=== PATIENT | female | born 1970 | race Caucasian/White ===

== ENCOUNTER 2025-04-27 08:55 | Outpatient (REF) | payer MEDICARE, MEDICAID, SELFPAY ==
--- OUTSIDE RECORDS SUMMARY | 2025-04-27 09:50 | XMS_ITS | Clinical Summary ---
Author Organization [address] Address [address] [place] [address] Phone Care Team Providers Care Voltage Regulator Assembler Name Role Phone [facility] Primary Care Provider [phone] Allergies Active Allergy Reactions Criticality Noted Date Comments Amoxicillin-Pot Clavulanate Diarrhea,Itching,Jakob sea And Vomiting,Rash Medium 04/23/2008 Moxifloxacin 04/29/2005 throat closes, cannot breathe Medications OXcarbazepine (TRILEPTAL) 300 mg tablet TAKE 1 TABLET BY MOUTH EVERY NIGHT DIRECTED 06/11/20 23 Active buPROPion XL (WELLBUTRIN XL) 300 mg 24 hr tablet Take 1 tablet (300 mg total) by mouth. 01/18/20 21 Active vortioxetine (Trintellix) 20 mg tablet Take 1 tablet (20 mg total) by mouth. 01/05/20 20 Active ARIPiprazole (ABILIFY) 5 mg tablet Take 2 tablets (10 mg total) by mouth 1 (one) time each day. Active buprenorphine-n aloxone (SUBOXONE) 8-2 mg per SL film Place under the tongue. Active clonazePAM (KlonoPIN) 0.5 mg tablet Take 1 tablet (0.5 mg total) by mouth. Active omeprazole (PriLOSEC) [address] capsuleIndicati ons:Gastroesoph ageal reflux disease, unspecified whether esophagitis present TAKE 1 CAPSULE BY MOUTH EVERY MORNING ON AN EMPTY STOMACH, WAIT 30 MINUTES AND THEN EAT TO ACTIVATE MEDICATION 90 capsule 3 06/08/20 24 Active phentermine 30 mg capsule Take 1 capsule (30 mg total) by mouth 1 (one) time each day before breakfast. Max Daily Amount: 30 mg 30 each 04/25/20 25 025 Active tirzepatide (MOUNJARO) 2.5 mg/0.5 mL injectionIndica tions:Need for prophylactic vaccination and inoculation against influenza,Forme r smoker,Obesity, unspecified class, unspecified obesity type, unspecified whether serious comorbidity present,Depress ion, unspecified depression type Inject 0.5 mL (2.5 mg total) under the skin every 7 (seven) days. 6 mL 3 07/24/19 25 025 Discontinued(P atient Discharge) phentermine 30 mg capsule Take 1 capsule (30 mg total) by mouth 1 (one) time each day before breakfast. Max Daily Amount: 30 mg 30 each 2 08/10/19 25 025 Discontinued phentermine 15 mg capsule Take 1 capsule (15 mg total) by mouth 1 (one) time each day before breakfast. 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 Pes planovalgus 04/17/2025 Arthritis of left subtalar joint 11/30/2024 Former smoker 07/24/2024 Family history of colon cancer in father Overview (07/05/2024): Age 50 Derangement of medial meniscus of right knee 09/2023 Acute lateral meniscus tear of right knee 2023 Upper respiratory tract infection 06/04/2023 SOB (shortness of breath) 06/04/2023 Arthralgia of left wrist 06/12/2020 De Quervain's tenosynovitis, left 02/26/2020 Closed fracture of proximal phalanx of left ace le finger 03/22/2019 Overview (04/17/2025): Problem Code: S62.617A; Problem Code Type: ICD-10; Status: 'A'; Gastric ulcer 10/24/2012 Overview (08/20/2023): EGD and bx 10/24/2012: gastric antral ulcer biopsy: active ulcer, benign.-no h. pylori bacteria identified. Normal EGD 09/20/2013. Hiatal hernia 10/19/2012 Overview (08/20/2023): 5 cm HH at EGD 10/24/2012. Depression 01/24/2008 Myalgia 03/01/2006 Overview (08/20/2023): IMO update Irritable bowel syndrome 02/25/2006 Anxiety state 02/19/2006 Overview (08/20/2023): On chronic Paxil, no more panic attacks Lumbosacral spondylosis without myelopathy 02/19 Abdominal pain, epigastric 12/28/2005 Overview (08/20/2023): Episode of epigastric abdominal pain 2005. Possible IBS. Possible infectious diarrheal illness. Upper GI endoscopy and gastric biopsies within normal limits 4.27.06. EGD normal 09/20/2013. Resolved Problems Problem Noted Date Diagnosed Date Resolved Date Runny nose 06/04/2023 04/17/2025 Tobacco use disorder 04/01/2006 025 Encounters Date Type Department Care Team Description 04/23/2025 Telephone Pulmonology - [address] [phone] Nelida Harman MA 04/17/2025 1:30 PM EST Consult Pulmonology [address] [phone] Arcelia Kirk MD DOE (dyspnea on exertion) (Primary Dx); Chronic fatigue and malaise; Obesity (BMI 30-39.9); Chronic midline low back pain without sciatica 04/06/2025 Telephone Bariatric Surgery - [address] [phone] Rimma Kelly PA 04/06/2025 Results Follow-Up Bariatric Surgery - [address] [phone] Rimma Kelly PA 04/04/2025 2:30 PM EDT Office Visit Bariatric Surgery - [address] [phone] Rimma Kelly PA Class 1 obesity due to excess calories with body mass index (BMI) of 33.0 to 33.9 in adult, unspecified whether serious comorbidity present (Primary Dx); MARIUM (obstructive sleep apnea); Family history of diabetes mellitus; Prediabetes 03/29/2025 1:15 PM EDT - 03/29/2025 11:59 PM EDT Hospital Encounter [facility] [place] [address] [place] [address] Radiculopathy, thoracic region; Vertebrogenic low back pain Discharge Disposition: Home or Self Care from Last 3 Months Immunizations Immunization Administration Dates Next Due Influenza Quadravalent, MDCK , 0.5ml, preservative free (Flucelvax) 6mo and older 07/16/2023 Influenza trivalent, MDCK, 0 .5mL, preservative free (Flucelvax) 6mo and older 07/24/2024 Influenza trivalent, with pr eservative (Fluzone; Afluria) 6mo and older 04/05/2020 Td Tetanus diptheria (Tdvax) 7yo and older 07/16,12/16/2004 Surgical History Surgery Date Site/Laterality Comments ESOPHAGOGASTRODUODENOSCOPY 10/08/2005 PROCEDURE: MI ESOPHAGOGASTRODUODENOSCOPY TRANSORAL DIAGNOSTIC CARPAL TUNNEL RELEASE PROCEDURE: HISTORICAL CARPAL TUNNEL REL; COMMENT: bilateral COLONOSCOPY 06/14/2002 PROCEDURE: [place] COLONOSCOPY FLX DX W/COLLJ SPEC WHEN PFRMD; COMMENT: Negative, Dr. Maico Odell COLONOSCOPY 03/07/2008 PROCEDURE: MI COLONOSCOPY FLX DX W/COLLJ SPEC WHEN PFRMD; COMMENT: Negative OTHER SURGICAL HISTORY 06/14/2006 PROCEDURE: MI TOTAL ABDOMINAL HYSTERECT W/WO RMVL TUBE OVARY; COMMENT: 2006 ovaries are still in ESOPHAGOGASTRODUODENOSCOPY 06/14/2012 PROCEDURE: MI EGD TRANSORAL BIOPSY SINGLE/MULTIPLE; COMMENT: gastric ulcers: Benign, no H. pylori. COLONOSCOPY 06/14/2012 PROCEDURE: MI COLONOSCOPY FLX DX W/COLLJ SPEC WHEN PFRMD; COMMENT: normal ESOPHAGOGASTRODUODENOSCOPY 09/20/2013 PROCEDURE: MI ESOPHAGOGASTRODUODENOSCOPY TRANSORAL DIAGNOSTIC; COMMENT: normal COLONOSCOPY 03/03/2021 PROCEDURE: HISTORICAL COLONOSCOPY; COMMENT: dr. carolyn rowley, repeat 5 years OTHER SURGICAL HISTORY Right PROCEDURE: MI ARTHRS KNE SURG W/MENISCECTOMY MED/LAT W/SHVG; COMMENT: r meniscus HYSTERECTOMY Medical History Medical History Date Comments Closed fracture of neck of m etacarpal bone(s) 06/14/2004 DX:Closed fracture of neck o f metacarpal bone(s) Lumbosacral spondylosis with out myelopathy DX:Lumbosacral spondylosis w ithout myelopathy Anxiety state, unspecified 02/19/2006 DX:An xiety state, unspecified; COMMENT: On chronic Paxil, no more panic attacks Abdominal pain, epigastric 12/28/2005 DX:Ab dominal pain, epigastric; COMMENT: Episode of epigastric abdominal pain 2005. Possible IBS. Possible infectious diarrheal illness. Upper GI endoscopy and gastric biopsies within normal limits 4.27.06. Irritable bowel syndrome 02/25/2006 DX:Irri table bowel syndrome Family history of malignant neoplasm of gastrointestinal tract 10/27/2005 DX:Family history of maligna nt neoplasm of gastrointestinal tract; COMMENT: negative screening colonoscopy [address] Maico Odell. Next colonoscopy indicated 2007. Single first-degree relative with diagnosis of colon cancer at age 50. Tobacco use disorder 04/01/2006 DX:Tobacco use disorder Gastric ulcer 10/24/2012 DX:Gastric ulcer ; COMMENT: EGD and bx 10/24/2012: Esophageal reflux DX:Esophageal reflux Functional dyspepsia DX:Function al dyspepsia H/O gastric ulcer DX:H/O gastric ulcer Family History Medical History Relation Name Comments Colon cancer Father Arthritis Mother Thyroid disease Mother Autoimmune disease Neg Hx Breast cancer Neg Hx Colon cancer Neg Hx Coronary artery disease Neg Hx Diabetes Neg Hx Heart attack Neg Hx Heart failure Neg Hx Hyperlipidemia Neg Hx Hypertension Neg Hx Mental illness Neg Hx Prostate cancer Neg Hx Sleep apnea Neg Hx Relation Name Status Comments Brother 1 Alive Brother 2 Alive Brother 3 Alive Father Alive HEART COLON CA NCER Mother Alive RHEUMATOID ARTH RITIS Sister Alive BACK PROBLEMS O BESITY Social History Tobacco Use Types Packs/Day Years Used Date Smoking Tobacco: Former Cigarettes 0.3 Q uit: 01/21/2022 Smokeless Tobacco: Current Tobacco Cessation:Ready to Q uit: Not Asked; Counseling Given: Not Answered Alcohol Use Standard Drinks/Week Comments No 0 (1 standard drink = 0.6 oz pur e alcohol) Housing Instability Answer Date Recorde d Are you worried that in the next 2 months you may not have stable housing? No 11/21/2024 Food Access & Nutrition Answer Date Rec orded Do you have access to a vari ety of food including fruits and vegetables? Yes 11/21/2024 Health Literacy Answer Date Recorded How often do you need to hav e someone help you when you read instructions, pamphlets, or other written material from your doctor or pharmacy? Never 11/21/2024 Caregiver: How often do you need to have someone help you when you read instructions, pamphlets, or other written material from your doctor or pharmacy? Not on file 11/21/2024 Financial Risk Answer Date Recorded How hard is it for you to pa y for the very basics like food, housing, medical care, and air conditioning / heating? Not very hard 11/21/2024 Transportation Answer Date Recorded Has the lack of transportati on kept you from meetings, work, or from getting things needed for daily living? No Has the lack of transportati on kept you from medical appointments or from getting medications? No 11/21/2024 Social Isolation Answer Date Recorded How often do you feel lonely or isolated from th ose around you? Never 11/21/2024 Food Risk Answer Date Recorded Within the past 12 months we worried whether our food would run out before we got money to buy more. Patient declined 025 Within the past 12 months th e food we bought just didn't last and we didn't have money to get more. Patient declined 11/12 Dependent Care Answer Date Recorded Do you need help finding or paying for care for your loved ones. For example, early childhood teacher assistant or elderly care for an older adult? No 11/21/2024 Education Answer Date Recorded Do you think completing more education or training, like finishing a GED, going to college, or learning a trade, would be helpful for you? No 11/21/2024 Employment and Income Answer Date Recor ded During the last four weeks, have you been actively looking for work? No 11/21/2024 Living Situation Answer Date Recorded What is your living situation? Unrecognized valu e 11/21/2024 Comments No Sex and Gender Information Value Date Recorded Sex Assigned at Not on file Legal Sex Female 5:40 AM EST Gender Identity Female 07/04/2024 2:59 PM EST Sexual Orientation Not on file Obstetrics History Para Term AB IAB SAB Ectopic Multiple Livin g Live Births 2 2 2 2 Date Outcome GA Total Labor Labor/2nd/3rd Weight Sex Type Anes PTL Patricia A1 A5 Name Clin Term Term Last Filed Vital Signs Vital Sign Reading Time Taken Comments Blood Pressure 123/66 04/17/2025 1:20 PM EST Pulse 87 04/17/2025 1:20 PM EST Temperature 36.1 C (97 F) 04/17/2025 1:20 PM EST Respiratory Rate 20 04/17/2025 1:20 PM EST Oxygen Saturation 95% 04/17/2025 1:20 PM EST Inhaled Oxygen Concentration - - Weight 82.1 kg (181 lb) 04/17/2025 1:20 PM EST Height 157.5 cm (5' 2 ) 04/17/2025 1:20 PM EST Body Mass Index 33.11 04/17/2025 1:20 PM EST Plan of Treatment Upcoming Encounters Date Type Department Care Team (Late st Contact Info) Description 05/15/2025 7:30 AM EST Appointment [facility] CT Scan [address] [place] [phone] 06/05/2025 8:30 AM EST Ancillary Procedure Pulmonology - [place] [address] [phone] 06/05/2025 9:15 AM EST Office Visit Pulmonology [facility] [address] [phone] Arcelia Kirk MD [address] [place] [phone] 09/11/2025 8:00 AM EDT Office Visit Bariatric Surgery - [place] [address] [facility] [address] [place] [address] Rimma Kelly PA [address] [place] [address] Health Maintenance Due Date Last Done Comments Hepatitis B Vaccines (1 of 3 - 19+ 3-dose series) 12/02/1987 Cervical Cancer Screening: Pap Smear 11/29/2017 11/29/2014 Pneumococcal Vaccine: 50+ Years (1 of 1 - PCV) 2018 Zoster Vaccines (1 of 2) 2018 HIV Screening 05/23/2022 Medicare Annual Wellness Visit 05/23/2022 COVID-19 Vaccine ( - season) 2025 11/27/2020, 11/06/2020 Influenza Vaccine (#1) 2025 , 07/16/2023, 04/05/2020, Additional history exists Social Influencers of Health Screening 11/21/2025 11/21/2024 Colorectal Cancer Screening: Colonoscopy 03/03/2026 03/03/2021 Breast Cancer Screening 10/19/2026 10/20/19, 08/26/2023, 08/20/2022 Cholesterol Screening (Lipid Panel) 07/24/2029 07/24/2024 DTaP,Tdap,and Td Vaccines (4 - Td or Tdap) 07/16/2033 07/16/2023, 09/22/2012, 12/16/2004 RSV Immunization Adult Patients (1 - 1-dose 75+ series) 12/02/2043 Hepatitis C Screening Completed 07/24/2024 Depression Screening Completed 11/21/2024 HIB Vaccines Aged Out No longer eligi ble based on patient's age to complete this topic HPV Vaccines Aged Out No longer eligi ble based on patient's age to complete this topic Hepatitis A Vaccines Aged Out No long er eligible based on patient's age to complete this topic IPV Vaccines Aged Out No longer eligi ble based on patient's age to complete this topic MMR Vaccines Aged Out No longer eligi ble based on patient's age to complete this topic Meningococcal ACWY Vaccine Aged Out N o longer eligible based on patient's age to complete this topic Meningococcal B Vaccine Aged Out No l onger eligible based on patient's age to complete this topic RSV Immunization Patients Under 20 months Aged Out No longer eligible based on patient's age to complete this topic Varicella Vaccines Aged Out No longer eligible based on patient's age to complete this topic Procedures Procedure Name Priority Date/Time Associated Diagnosis Comments HEMOGLOBIN A1C Routine 04/06/2025 7:38 AM EDT Class 1 obesity due to excess calories with body mass index (BMI) of 33.0 to 33.9 in adult, unspecified whether serious comorbidity present Family history of diabetes mellitus Prediabetes XR THORACIC SPINE 2 VIEWS Routine 03/29/2025 1:38 PM EDT Radiculopathy, thoracic region Vertebrogenic low back pain MG MAMMO DIGITAL SCREENING W JADEN BILAT Routine 10/19/2024 6:13 PM EDT Encounter for screening mammogram for breast cancer HEPATITIS C ANTIBODY Routine 07/24/2024 9:31 AM EST Need for prophylactic vaccination and inoculation against influenza Former smoker Obesity, unspecified class, unspecified obesity type, unspecified whether serious comorbidity present Depression, unspecified depression type LIPID PANEL WITH REFLEX TO DIRECT LDL Routine 07/24/2024 9:31 AM EST Need for prophylactic vaccination and inoculation against influenza Former smoker Obesity, unspecified class, unspecified obesity type, unspecified whether serious comorbidity present Depression, unspecified depression type from Last 3 Months or Most Recently Relevant to Health Maintenance Results * Hemoglobin A1c (04/06/2025 7:38 AM EDT) Hemoglobin A1C 6.1 <6.5 % LAB CHEMISTRY METHOD 04/06/2025 11:29 AM EDT [facility] Mean Bld Glu Estim. 128 mg/dL LAB CHEMISTRY METHOD 04/06/2025 11:29 AM EDT [facility] Blood Venous blood specimen / Unknown Venipuncture / Unknown 04/06/2025 7:38 AM EDT 04/06/2025 7:38 AM EDT us Rimma ALEXANDRA LAB BLOOD ORDERABLES Final R esult [facility] [address] [place] [address], [place] [phone] * XR Thoracic Spine 2 Views (03/29/2025 1:38 PM EDT) Anatomical Region Laterality Modality Spine, T-spine Radiographic Sis ging 03/29/2025 5:36 PM EDT Impressions 03/29/2025 5:38 PM EDT No acute fracture or dislocation is seen. -------- FINAL REPORT -------- Dictated By: April Stone Dictated Date: 03/29/2025 17:36 ET Assigned Physician: April Stone Reviewed and Electronically Signed By: April Stone Signed Date: 03/29/2025 17:38 ET Workstation ID: [id number] Transcribed By: Self Edit Transcribed Date: 03/29/2025 17:36 ET Narrative 03/29/2025 5:38 PM EDT HISTORY: pain TECHNIQUE: 2 views of the thoracic spine COMPARISON: Thoracic spine radiograph from 01/02/2013 FINDINGS: Vertebral body height is maintained. Decreased disc height at multiple levels with endplate sclerosis. Small anterior osteophytes are present at multiple levels. The upper thoracic spine is not well-visualized on the lateral view. Spinal alignment is maintained without evidence of spondylolisthesis. No acute fracture is identified. Procedure Note April Stone MD - 03/29/2025 HISTORY: pain TECHNIQUE: 2 views of the thoracic spine COMPARISON: Thoracic spine radiograph from 01/02/2013 FINDINGS: Vertebral body height is maintained. Decreased disc height at multiplelevels with endplate sclerosis. Small anterior osteophytes are present atmultiple levels. The upper thoracic spine is not well-visualized on thelateral view. Spinal alignment is maintained without evidence ofspondylolisthesis. No acute fracture is identified. IMPRESSION: No acute fracture or dislocation is seen. -------- FINAL REPORT -------- Dictated By: April Stone Dictated Date: 03/29/2025 17:36 ET Assigned Physician: Arpil Stone Reviewed and Electronically Signed By: April Stone Signed Date: 03/29/2025 17:38 ET Workstation ID: [id number] Transcribed By: Self Edit Transcribed Date: 03/29/2025 17:36 ET Romie ALEXANDRA IMG XR PROCEDURES Final Result * MG Mammo Digital Screening w Jaden bilat (10/19/2024 6:13 PM EDT) Anatomical Region Laterality Modality Breast Bilateral Mammography 10/20/2024 2:45 PM EDT Impressions 10/20/2024 2:49 PM EDT No mammographic evidence for malignancy. BI-RADS CATEGORY: 1 - NEGATIVE RECOMMENDATION: Screening bilateral mammogram is recommended in 1 year. Mammo Location: [facility], [address] [place] [address], [address], . -------- FINAL REPORT -------- Dictated By: Shonda Booth Dictated Date: 10/20/2024 14:45 ET Assigned Physician: Shonda Booth Reviewed and Electronically Signed By: Shonda Booth Signed Date: 10/20/2024 14:49 ET Workstation ID: [id number] Transcribed By: Self Edit Transcribed Date: 10/20/2024 14:45 ET Narrative 10/20/2024 2:49 PM EDT Bilateral screening mammogram. CLINICAL: 53 years old, Female, routine annual exam. COMPARISON: Prior studies, latest from 08/26/2023. TECHNIQUE: Bilateral MLO and CC views were obtained digitally with 2-D C views and 3-D mammogram (digital breast tomosynthesis). Computer-aided detection was utilized in evaluation of this exam (CAD). FINDINGS: There is no evidence of suspicious mass or architectural distortion. No worrisome calcifications are evident. There has been no significant change from prior exam(s). BREAST DENSITY: C - The breasts are heterogeneously dense which may obscure small masses. Procedure Note Shonda Booth MD - 10/20/2024 Bilateral screening mammogram. CLINICAL: 53 years old, Female, routine annual exam. COMPARISON: Prior studies, latest from 08/26/2023. TECHNIQUE: Bilateral MLO and CC views were obtained digitally with 2-D Cviews and 3-D mammogram (digital breast tomosynthesis). Computer-aideddetection was utilized in evaluation of this exam (CAD). FINDINGS: There is no evidence of suspicious mass or architectural distortion. Noworrisome calcifications are evident. There has been no significantchange from prior exam(s). BREAST DENSITY: C - The breasts are heterogeneously dense which mayobscure small masses. IMPRESSION: No mammographic evidence for malignancy. BI-RADS CATEGORY: 1 - NEGATIVE RECOMMENDATION: Screening bilateral mammogram is recommended in 1 year. Mammo Location: [facility], [address] [place] [address], [facility], . -------- FINAL REPORT -------- Dictated By: Shonda Booth Dictated Date: 10/20/2024 14:45 ET Assigned Physician: Shonda Booth Reviewed and Electronically Signed By: Shonda Booth Signed Date: 10/20/2024 14:49 ET Workstation ID: [id number] Transcribed By: Self Edit Transcribed Date: 10/20/2024 14:45 ET Emeterio ALEXANDRA IMG BI PROCEDURES Final R esult * Hepatitis C antibody (07/24/2024 9:31 AM EST) Hepatitis C Antibody Negative Negative LAB CHEMISTRY METHOD 07/24/2024 3:49 PM EST [facility] Blood Venous blood specimen / Unknown Venipuncture / Unknown 07/24/2024 9:31 AM EST 07/24/2024 9:31 AM EST Emeterio ALEXANDRA LAB BLOOD ORDERABLES Brandi l Result [facility] [address] [place] [address], [place] [phone] * Lipid panel with reflex to direct LDL (07/24/2024 9:31 AM EST) Cholesterol 183 0 - 200 mg/dL LAB CHEMISTRY METHOD 07/24/2024 3:06 PM [facility] Triglycerides 101 0 - 150 mg/dL LAB CHEMISTRY METHOD 07/24/2024 3:06 PM [facility] HDL 79 >=40 mg/dL LAB CHEMISTRY METHOD 07/24/2024 3:06 PM [facility] LDL Calculated 84 0 - 100 mg/dL LAB CHEMISTRY METHOD 07/24/2024 3:06 PM [facility] VLDL Cholesterol David 20.2 mg/dL LAB CHEMISTRY METHOD 07/24/2024 3:06 PM [facility] Non HDL Chol. (LDL+VLDL) 104 <145 mg/dL LAB CHEMISTRY METHOD 07/24/2024 3:06 PM [facility] Chol/HDL Ratio 2.3 0.0 - 4.4 LAB CHEMISTRY METHOD 07/24/2024 3:06 PM [facility] Blood Venous blood specimen / Unknown Venipuncture / Unknown 07/24/2024 9:31 AM EST 07/24/2024 9:31 AM EST Emeterio ALEXANDRA LAB BLOOD ORDERABLES Brandi l Result Performing Organization Address City/[facility]/ZIP Co de Phone Number [facility] [address] [place] [address], [place] [phone] from Last 3 Months or Most Recently Relevant to Health Maintenance Insurance MEDICARE MEDICAID - [place] Care Teams Voltage Regulator Assembler Relationship Specialty Start Date End Date Emeterio House PA [address] [place] [id number] PCP - General Internal Medicine 08/14/20
--- OUTSIDE RECORDS SUMMARY | 2025-04-27 09:50 | XMS_ITS | Encounter Summary ---
Author Organization [facility] Address [address] [place] [address] Care Team Providers Care Inside Wirer Name Role Phone Emeterio House Primary Care Provider [phone] Encounter Details Date Type Department Care Team ([facility] Contact Info) Description 04/06/2025 Results Follow-Up Bariatric Surgery - [address] [place] [address] Rimma Kelly PA [address] [place] [phone] Social History Tobacco Use Types Packs/Day Years Used Date Smoking Tobacco: Former Cigarettes 0.3 Q uit: 01/21/2022 Smokeless Tobacco: Current Alcohol Use Standard Drinks/Week Comments No 0 [...] care for your loved ones. For example, child care provider or elderly care for an older adult? [...] PM EST Sexual Orientation Not on file documented as of this encounter Plan of Treatment Upcoming Encounters Date Type Department Care Team (Late st Contact Info) Description 05/15/2025 7:30 AM EST Appointment [facility] CT Scan [address] [place] [phone] 06/05/2025 8:30 AM EST Ancillary Procedure Pulmonology - [place] [address] [phone] 06/05/2025 9:15 AM EST Office Visit Pulmonology [facility] [address] [phone] Arcelia Kirk MD [address] [place] [phone] 09/11/2025 8:00 AM EDT Office Visit Bariatric Surgery - [address] [place] [phone] Rimma Kelly PA [address] [place] [phone] documented as of this encounter Visit Diagnoses Not on filedocumented in this encounter Additional Health Concerns Assessment Noted Time PHQ-9 Depression Total Score: 0 07/23/19 25 10:02 AM EST documented as of this encounter Care Teams Inside Wirer Relationship Specialty Start Date End Date Emeterio House PA [address] [place] [id number] PCP - General Internal Medicine 08/14/20 documented as of this encounter
--- OUTSIDE RECORDS SUMMARY | 2025-04-27 09:50 | XMS_ITS | Encounter Summary ---
Author Organization [employer] Address [address] [facility] [address] [place] [address] Care Team Providers Care Assembly Repairer Name Role Phone Unavailable Primary Care Provider Unavailabl e Encounter Details Date Type Department Care Team (Latest Contact Info) Description 10/28/2018 Abstract [facility] CONVERSIONS Dental, Provider, DDS Social History Tobacco Use Types Packs/Day Years Used Date Smoking Tobacco: Never Assessed Comments Unknown Sex and Gender Information Value Date Recorded Sex Assigned at Female 04/13/2022 10:23 AM EDT Legal Sex Female 10:23 AM EDT Gender Identity Female 04/13/2022 10:23 AM EDT Sexual Orientation Straight 04/13/2022 10 :23 AM EDT documented as of this encounter Plan of Treatment Not on file documented as of this encounter Visit Diagnoses Not on filedocumented in this encounter
--- OUTSIDE RECORDS SUMMARY | 2025-04-27 09:50 | XMS_ITS | Encounter Summary ---
Author Organization [employer] Address [address] [facility] [address] [place] [address] Care Team Providers Care Document Design Specialist Name Role Phone Unavailable Primary Care Provider Unavailabl e Encounter Details Date Type Department Care Team (Latest Contact Info) Description 04/01/2020 Abstract [facility] CONVERSIONS Dental, Provider, DDS Social History [...]
--- OUTSIDE RECORDS SUMMARY | 2025-04-27 09:50 | XMS_ITS | Clinical Summary ---
Author Organization [employer] Address [address] [place] [address] [address] [place] [address] Care Team Providers Care Sales And Marketing Executive Name Role Phone Unavailable Primary Care Provider Unavailabl e Social History Tobacco Use Types Packs/Day Years Used Date Smoking Tobacco: Never Assessed Comments Unknown Sex and Gender Information Value Date Recorded Sex Assigned at Female 04/13/2022 10:23 AM EDT Legal Sex Female 10:23 AM EDT Gender Identity Female 04/13/2022 10:23 AM EDT Sexual Orientation Straight 04/13/2022 10 :23 AM EDT Last Filed Vital Signs Vital Sign Reading Time Taken Comments Blood Pressure 128/72 06/21/2020 12:01 AM EST Pulse - - Temperature - - Respiratory Rate - - Oxygen Saturation - - Inhaled Oxygen Concentration - - Weight - - Height - - Body Mass Index - - Plan of Treatment Health Maintenance Due Date Last Done Comments CT Colonography 1968 Colonoscopy 1968 Colorectal Cancer Screening 1968 Depression Screening 1968 FIT DNA/Cologuard 1968 FIT 1968 FOBT 1968 Sigmoidoscopy 1968 Disability Screening 1968 Alcohol/Substance Use Screening 1980 Tobacco Screening 1980 DTaP/Tdap/Td Vaccines (1 - Tdap) 12/02/1987 Hepatitis B Vaccines (1 of 3 - 19+ 3-dose series) 12/02/1987 Pap Smear 1989 Cervical Cancer Screening 1998 HPV/Cotest 1998 Mammogram 2008 Pneumococcal Vaccine: 50+ Ye ars (1 of 1 - PCV) 2018 Zoster Vaccines (1 of 2) 2018 COVID-19 Vaccine (2023-2 5 season) 2025 Influenza Vaccine (#1) 2025 RSV Patients and Pa tients Aged 60 years or older (1 - 1-dose 75+ series) 12/02/2043 HIB Vaccines Aged Out No longer eligi [...] patient's age to complete this topic Meningococcal Vaccine Aged Out No luisa tanya eligible based on patient's age to complete this topic RSV under 20 months Aged Out No longe r eligible based on patient's age to complete this topic Rotavirus Vaccines Aged Out No longer eligible based on patient's age to complete this topic
--- OUTSIDE RECORDS SUMMARY | 2025-04-27 09:50 | XMS_ITS | Encounter Summary ---
Author Organization [employer] Address [address] [place] [address] [address] [place] [address] Care Team Providers Care Control Tower Radio Operator Name Role Phone Unavailable Primary Care Provider Unavailabl e Encounter Details Date Type Department Care Team (Latest Contact Info) Description 02/18/2021 Abstract [facility] CONVERSIONS Dental, Provider, DDS Social History [...]
--- OUTSIDE RECORDS SUMMARY | 2025-04-27 09:50 | XMS_ITS | Data Portability ---
Author Organization REX Parminder Tubbs [facility], [facility] Address [address] [place] [address] Care Team Providers Care Retail Event Assistant Name Role Phone TRISTINLESUZANNE Primary Care Provider Assessment Encounter Date Assessment Date Assessment LastModified by Organization Details LastModified Time 08/15/2024 08/15/2024 ICD-10: Right pe s planovalgus, subfibular impingement CHIEF COMPLAINT: Right foot and ankle pain HISTORY OF PRESENT ILLNESS: Joie is a very pleasant 53-year-old woman who is well-known to me as she is status post successful left triple arthrodesis for pes planovalgus deformity in late September 2021. I last saw her in November 2021. She has no complaints with regard to her left foot or ankle and describes her left side is feeling great. She comes in today because of a one-month history of insidious onset right lateral ankle and hindfoot pain without injury or inciting event. She has tried icing the area and taking Tylenol. She has not tried bracing orthotics. She is here today to discuss additional treatment options. Past family, medical, social history and review of systems has been reviewed, updated and is located in the patient s chart. PHYSICAL EXAM: General: obese, healthy appearing, in no acute distress Psych: alert and oriented x3, normal mood Skin: intact without ulceration or lesion, normal turgor Lungs: respirations unlabored Cardiac: heart rate regular, normal peripheral pulses Musculoskeletal: On standing exam, her left foot and ankle are well aligned/plantigrade . She has asymmetric right pes planovalgus deformity. She is able to single limb heel rise with some difficulty. On seated exam, she is tender about the right lateral ankle and hindfoot especially over the sinus tarsi where there is some adipose tissue and synovitic change. She is nontender over the medial hindfoot and posterior tibial tendon. She has a gastrocnemius contracture. Skin is intact and she is distally neurovascularly intact. She is mildly tender over the peroneal tendons. X-RAYS: Five standing views of the right foot and ankle with comparison AP left foot and AP left ankle were ordered, obtained and reviewed by me today at [facility], demonstrating healed left triple hindfoot arthrodesis with well aligned foot and ankle. On the right side, there is pes planovalgus deformity with lateral talonavicular uncovering and sag in Meary's line on lateral view through the midfoot. Her ankle mortise is congruent. There is question of chronic subtle syndesmotic widening. IMPRESSION: Right pes planovalgus, subfibular impingement PLAN: I discussed these findings with Joie. I believe she is experiencing the same symptoms on the right side that she was experiencing on the left side prior to surgery. I believe her sub-fibular impingement is driven by her deformity. I have recommended trial of OTC orthotics in conjunction with a [facility] external ankle brace, which can be worn either in a locked or unlocked position depending on her preference. She will follow up with me in 3 months for reevaluation. If pain persists, I would recommend an MRI of the right ankle for further evaluation of her hindfoot joints, ankle, peroneal tendons and lateral ligaments. If conservative measures fail, she will likely require a right triple hindfoot arthrodesis. I discussed this with her today. All questions were answered. The patient is ambulatory, but has weakness and/or instability of their extremity which requires stabilization from this semi-rigid/rigid orthosis to improve their function. Verbal and written instructions for the use and application of this item were given. Patient was instructed that should the brace result in increased pain, decreased sensation, increased swelling or an overall worsening of their medical condition, to please contact our office immediately. 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 I treated her in a [facility] ankle brace and she is doing much better today with essentially no pain about her right foot and ankle. She is happy about this improvement. We recall that she is 3 years status post left triple hindfoot arthrodesis. She unfortunately developed pain about her left dorsal midfoot after running across the street two weeks ago. She feels she is walking with a limp. Prior to this, she was not having any left foot or ankle pain. Her pain level is 8/10. She denies any swelling or ecchymosis. She has been taking Tylenol for pain. Past family, medical, social history and review of systems has been reviewed, updated and is located in the patient s chart. PHYSICAL EXAM: General: obese, healthy appearing, in no acute distress Psych: alert and oriented x3, normal mood Skin: intact without ulceration or lesion, normal turgor Lungs: respirations unlabored Cardiac: heart rate regular, normal peripheral pulses Musculoskeletal: On standing exam, she has right pes planovalgus. Her left foot and ankle are well aligned. She has well-healed incisions. There is no visible swelling, erythema, ecchymosis or warmth. She is tender over her dorsal naviculocuneiform joints. She is also tender over her dorsal navicular over retained hardware. She is otherwise nontender and distally neurovascular intact. Her ankle is stable and nontender. X-RAYS: Five standing views of the left foot and ankle were ordered, obtained and reviewed by me today at [facility], demonstrating healed triple arthrodesis with well aligned foot and ankle. There is naviculocuneiform arthritis. I see no evidence of fracture. IMPRESSION: Left naviculocuneiform arthritis, painful hardware PLAN: I discussed these findings with the patient. I believe she likely sprained her left foot and has some underlying naviculocuneiform adjacent joint arthritis. She may also have painful hardware. I have recommended a CT scan of the left ankle to evaluate her triple arthrodesis and naviculocuneiform joints. I will speak with her by telephone to review the CT scan results. We may consider a naviculocuneiform cortisone injection by [facility] radiology versus talonavicular hardware removal. All questions were answered. The patient is ambulatory, but has weakness and/or instability of their extremity which requires stabilization from this semi-rigid/rigid orthosis to improve their function. Verbal and written instructions for the use and application of this item were given. Patient was instructed that should the brace result in increased pain, decreased sensation, increased swelling or an overall worsening of their medical condition, to please contact our office immediately. 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 I last saw her in early November. She was having significant pain about her left dorsal midfoot and I was concerned about her having painful hardware versus talonavicular nonunion versus adjacent joint naviculocuneiform arthritis. I therefore recommended a CT scan. She is doing a little bit better since I last saw her. She has been wearing a CAM boot. Her right ankle pain has subsided as we recall she has right pes planovalgus and subfibular impingement. I treated her in a [employer] ankle brace and she is doing much better from that standpoint. We recall that she is 3 years status post left triple hindfoot arthrodesis. She unfortunately developed pain about her left dorsal midfoot after running across the street last month. Prior to this, she was not having any left foot or ankle pain. Past family, medical, social history and review of systems has been reviewed, updated and is located in the patient s chart. PHYSICAL EXAM: deferred Based on my physical exam from 11/14/24: General: obese, healthy appearing, in no acute distress Psych: alert and oriented x3, normal mood Skin: intact without ulceration or lesion, normal turgor Lungs: respirations unlabored Cardiac: heart rate regular, normal peripheral pulses Musculoskeletal: On standing exam, she has right pes planovalgus. Her left foot and ankle are well aligned. She has well-healed incisions. There is no visible swelling, erythema, ecchymosis or warmth. She is tender over her dorsal naviculocuneiform joints. She is also tender over her dorsal navicular over retained hardware. She is otherwise nontender and distally neurovascular intact. Her ankle is stable and nontender. X-RAYS: Previous x-rays were reviewed, demonstrating healed triple arthrodesis with well aligned foot and ankle. There is naviculocuneiform arthritis. I see no evidence of fracture. CT: I independently reviewed her recent CT scan images from 11/15/2024, demonstrating successful triple arthrodesis with intact well-positioned hardware. Her dorsal talonavicular staple is mildly prominent. There is mild naviculocuneiform arthritis most notably at the middle cuneiform-navicular joint. No evidence of acute fracture. IMPRESSION: Left naviculocuneiform arthritis, painful hardware PLAN: I discussed these findings with the patient. Her CT scan was generally reassuring. This is negative for fracture or nonunion. I believe she most likely is expressing pain from adjacent joint naviculocuneiform arthritis and also possibly painful dorsal talonavicular hardware. I have recommended a fluoroscopic guided left middle cuneiform-navicular cortisone injection by [facility] radiology. She will remain in her CAM boot for the time being and may wean this as tolerated. She will follow up in 2 months for reevaluation. Depending on her response to the injection, we may consider talonavicular hardware removal surgery. All questions were answered. This visit was a real-time Telemedicine interaction between a physician in a medical office and the patient from their home. The totality of the communication of information exchanged between the physician (myself) and the patient during the course of the synchronous telemedicine service was sufficient to meet the nieves components and/or requirement of the same service when rendered via a rhky-sb-svmq interaction. I discussed with the patient the risks and benefits of telemedicine services and the patient consented to the receipt of telemedicine services. During our visit, the patient was at their personal residence. I was located in my office at [address] [place] [address]. We utilized audio-video devices for our visit today. We spent approximately 15 minutes together for today's visit. This virtual visit is being used in place of an in-person visit and will be billed in similar fashion. As part of obtaining consent for this virtual visit, the patient has been made aware of and expressed understanding on the followin. Staying in touch with my team is important and that virtual care is a supplement to and not replacement of in person care. 2. We will protect the privacy and security of the patient's protected health information (PHI), but as with any electronic transmission, the privacy and security of PHI cannot be guaranteed. 3. The patient should conduct the virtual visit in a private and secure place, so that others cannot see or hear the PHI discussed. 4. The patient is responsible for calling me with any clinical questions or concerns in between virtual visits. 5. For medical emergencies, the patient will call 911 immediately. 6. The patient and I each have the right to discontinue the virtual visit program at any time. Not available 11/30/2024 15:44:27 Plan of Treatment Reminders Order Date Submit Date Provider Last Modified By Organization Details Last Modified Time Details Appointments RECHECK 15 2024 08:45A Shanelle Garvin MD Not available Not available Not available Lab None recorded. Referral None recorded. Procedures intra-art icular injection , foot (PROC) - Left foot pain -- steroid injection (1cc 0.25 marcaine : 1cc celestone ) between middle and naviculoc uneiform joint 2024 025 [facility] Centralized Scheduling([facility]), [address] [place], [address], 11/30/2024 15:50:48 Surgeries None recorded. Imaging CT, ankle, w/o contrast - evaluate her triple arthrodes is and naviculoc uneiform joints. 2024 025 KAIT[facility] [place], [address] [facility] [facility], [place], [address], 11/19/2024 23:04:17 XR, ankle + foot - RM # 107 ---3V LT FOOT WB, 2V ANKLE WB 2024 025 [email or web address], [address], [address], [place], [address], 11/17/2024 11:50:13 XR, ankle + foot - rm 108-- NEW 3v foot wb, 2v ankle wb 2024 025 [email or web address], [address], [address], [place], [address], 08/29/2024 08:04:44 Medication Orders None recorded. Patient TargetsNo targets recorded. Patient InstructionsNo instructions recorded. Reason for Referral None Reported. Results Created Date Observation Date Name Description Value Unit Range Abnormal Flag Note LastModifiedBy Organization Detail LastModifiedTime 02/12/2008/09/2021 imagi ng/di agnos tic resul t No observ ation record ed. [email or web address] Not Available 01/14 02:32:42 08/16/19 25 08/15/2024 XR, ankle + foot http:/ [email or web address] ?Encry pted=s hAaTro YD8dLq bEUv6g %2BXZw aYqtaq 0bqfl% 2Fg9IQ a4ajBk vP9nXo QUaueC m3YtLR FvZlgJ JJ8mAn HZtai3 9t5221 AC0Kqb XuMUKO vKiQtr MwF INTERFACE [facility] [address], [place], [address], 08/15/2024 09:28:24 08/16/19 25 08/15/2024 XR, ankle + foot http:/ [email or web address] ?Encry pted=s hAaTro YD8dLq bEUv6g %2BXZw aYqtaq 0bqfl% 2Fg9IQ a4ajBk vP9nXo QUaueC m3YtLR FvZlJ JJ8mAn HZtai3 8k4258 AC0Kqb XuMUKO vKiQtr MwF INTERFACE [facility] [address], [place], [address], 08/15/2024 09:28:26 11/15/19 25 11/14/2024 XR, ankle + foot [email or web address] ?Encry pted=s hAaTro YD8dLq bEUv6g %2BXZw aYqtaq 0bqfl% 2Fg9IQ a4ajBk vP9nXo QUaueC m3YtLR FvZlgJ JJ8mAn HZtai3 2p9527 AC0Kla 3WCWKa kKiQtr MwF INTERFACE [facility] Office [address] [facility] [address], [place], [address], 11/14/2024 09:56:54 11/15/19 25 11/14/2024 XR, ankle + foot http:/ [email or web address] ?Encry pted=s hAaTro YD8dLq bEUv6g %2BXZw aYqtaq 0bqfl% 2Fg9IQ a4ajBk vP9nXo QUaueC m3YtLR FvZlgJ JJ8mAn HZtai3 7y6127 AC0Kla 3WCWKa kKiQtr MwF INTERFACE [facility] [address] [facility] [address], [place], [address], 11/14/2024 09:56:55 11/20/19 25 11/15/2024 CT, ankle , w/o contr ast No observ ation record ed. [email or web address] [facility] [address] [facility] [address], [place], [address], 11/20/2024 10:34:15 Result Notes Documentation Provider Name and Address Organization Details Recorded Time Xr, Ankle + Foot : [email or web address] Encrypted=paLuWxrEO7rHzlQ Uv6g%5MKFvnMqumf7sefh%2Fg 3EIl3mjIcsG0pPrBBucuKz9Cf DPIfEvxRJH5qDxOCmmr95h169 9UN8OwiNdEWAKeTwQnnAhY Not Available [facility] 08/15/2024 09:28: 25 Xr, Ankle + Foot : [email or web address] Encrypted=tiWiQcfNJ3sPakB Uv6g%9OSTvbNihrc2uqbj%2Fg 3TSt4qxShyQ5zNoAPlpqVc1Qn FWYcRuvQIF6yNdZRwpx38z521 0NJ5OnaQaJZSPiQoJgeRkC Not Available [facility] 08/15/2024 09:28: 27 Xr, Ankle + Foot : [email or web address] Encrypted=tuHsYwsXD0vJxnQ Uv6g%2JCCisPssms7ycjq%2Fg 3CVf3yiNgyD7cOiJQkqdXs3Bu HUAbNxyMLV6qOmBKamy08u005 5EY6Vaq7FHISllCjSvhVrY Not Available [facility] 11/14/2024 09:56: 54 Xr, Ankle + Foot : [email or web address] Encrypted=vpOhCdcLG9nLviK Uv6g%4KJXqwHzyjw7pkhn%2Fg 2NMx6iuDqmP1sTaJMuioRn1Ti FWLkNnfMBQ3qMlTHxhh00y572 9AQ3Bmi2NDAZweGzBjdFpC Not Available [facility] 11/14/2024 09:56: 56 Problems Name Problem SNOMED Code Status Onset Date Resolution Date Notes Provider Name and Address Organization Details Recorded Time No complaint s 962787019 Active Status: 'I'; Not Available [facility] 4 09:25:03 Closed fracture of proximal phalanx of little finger of left hand 680344600303 88828 Active 2018 Problem Code: S62.617A ; Problem Code Type: ICD-10; Status: 'A'; Not Available [facility] 11:57:45 Acute tear of lateral meniscus of right knee 004704764939 79536 Active 2023 Tin Hennessy MD [address] [facility] [address], [place], [address] , [facility] 07:56:37 Derangeme nt of medial meniscus of right knee 102102569434 106 Active 2023 Suzanne Flanagan PA-C [address], [place], [address] , [facility] 4 06:32:01 Arthritis of left foot 512485064535 9109 Active 2024 Oracio Garvin MD [address], [place], [address] , [facility] 5 15:44:34 Problem Notes None recorded. Medical Equipment None Reported. Allergies Allergen ID Allergen Name Allergen Category Reaction Reaction Severity Criticality Documentation Date Start Date Code Code System Note Provider Name and Address Organization Details Recorded Time 324407 Augmentin medicatio n Not available Not available Not available 08/16/20232016 70858 2 RxNorm Aller gyRea ction : 'Asth ma/Sh ort of Breat h'; Not Available [facility] 4 15:50:04 278941 Avelox medicatio n Not available Not available Not available 08/16/20232004 97542 6 RxNorm Aller gyRea ction : 'Skin React ion'; Not Available [facility] 4 15:50:04 Medications Name Sig Start Date Stop Date Status Note LastModified by Organization Details LastModified Time cyclobenzap rine 10 mg tablet TAKE 1 TABLET BY MOUTH THREE TIMES DAILY NEEDED FOR MUSCLE SPASMS active Not Available Not Available No t Available ketoconazol e 2 % shampoo APPLY TO SCALP TOPICALLY WHILE SHOWERING TWICE WEEKLY NEEDED active Not Available Not Available No t Available azithromyci n 250 mg tablet TAKE 2 TABLETS BY MOUTH DAILY FOR 1 DAY THEN TAKE 1 TABLET BY MOUTH DAILY FOR 4 DAYS active Not Available Not Available No t Available clonazepam 0.5 mg tablet TAKE 1 TABLET BY MOUTH THREE TIMES DAILY NEEDED active Not Available Not Available No t Available phentermine 15 mg capsule TAKE 1 CAPSULE BY MOUTH EVERY MORNING 01/11 completed Not Available Not Available Not Available oxcarbazepi ne 300 mg tablet TAKE 1 TABLET BY MOUTH EVERY NIGHT DIRECTED active Not Available Not Available No t Available melatonin 3 mg tablet TAKE 1 TABLET BY MOUTH EVERY NIGHT NEEDED FOR INSOMNIA active Not Available Not Available No t Available sulfamethox azole 800 mg-trimetho prim 160 mg tablet TAKE 1 TABLET BY MOUTH TWICE DAILY FOR 5 DAYS active Not Available Not Available No t Available tramadol 50 mg tablet Take 1 tablet every 6 hours by oral route for 7 days. 2023 active Not Available Not Available Not Avai lable phentermine 30 mg capsule TAKE 1 CAPSULE BY MOUTH EVERY MORNING active Not Available Not Available No t Available omeprazole 20 mg capsule,del ayed release TAKE 1 CAPSULE BY MOUTH EVERY MORNING BEFORE BREAKFAST active Not Available Not Available No t Available naproxen 500 mg tablet Take 1 tablet twice a day by oral route for 30 days. 2023 active Not Available Not Available Not Avai lable oxycodone 5 mg tablet 2023 active Not Available Not Available Not Avai lable aripiprazol e 10 mg tablet TAKE 1 TABLET BY MOUTH DAILY active Not Available Not Available No t Available cyclosporin e 0.05 % eye drops in a dropperette INSTILL 1 DROP IN BOTH EYES TWICE DAILY active Not Available Not Available No t Available bupropion HCl XL 300 mg 24 hr tablet, extended release TAKE 1 TABLET BY MOUTH DAILY active Not Available Not Available No t Available nitrofurant oin monohydrate /macrocryst als 100 mg capsule TAKE 1 CAPSULE BY MOUTH 2 TIMES PER DAY FOR 5 DAYS MUST ADMINISTE R WITH A MEAL/FOOD active Not Available Not Available No t Available Santyl once a day APPLY DIRECTLY TO WOUND ONCE DAILY. 2021 active Statu s: 'Curr ent'; Not Available Not Available Not Available aripiprazol e ARIPipraz ole 2MG Tablet 01/11 completed Statu s: 'Curr ent'; Not Available Not Available Not Available oxycodone HCl-oxycodo ne-ASA 1 Q 4-6HRS PRN PAIN to begin the day after surgery DO NOT DRIVE WHILE ON THIS MEDICATIO N 01/11 completed Statu s: 'Curr ent'; Not Available Not Available Not Available buprenorphi ne 4 mg-naloxone [address] 1 FILM UNDER THE TOUNGE EVERY DAY active Not Available Not Available No t Available Trintellix 20 mg tablet TAKE 1 TABLET BY MOUTH DAILY active Not Available Not Available No t Available BinaxNOW COVID-19 Ag Self Test kit TEST DIRECTED TODAY active Not Available Not Available No t Available Vitals Date Recorded Body height Body mass index (BMI) Body weight Provider Name and Address Organization Details Last Updated DateTime 08/15/2024 157.48 cm 40.2 kg/m2 44371.32 g GARY CERVANTESJaycePARAS Blakely [facility] 08/15/2024 09:23:53 Date Recorded Body height Body mass index (BMI) Body weight Provider Name and Address Organization Details Last Updated DateTime 11/14/2024 157.48 cm 30.7 kg/m2 42177.52 g Belinda Prajapatikathieverna [facility] 11/14/2024 09:46:47 Date Recorded Body height Provider Name an d Address Organization Details Last Updated DateTime 11/30/2024 157.48 cm Enriqueta hari [facility] 11/30/2024 15:39:15 Date Recorded Body height Body mass index (BMI) Body weight Provider Name and Address Organization Details Last Updated DateTime 01/12/2024 157.48 cm 40.2 kg/m2 65648.32 g PINA HELLER [facility] 01/12/2024 09:32:25 Date Recorded Body height Body mass index (BMI) Body weight Body temperature Provider Name and Address Organization Details Last Updated DateTime 02/16/2024 157.48 cm 40.2 kg/m2 27462.32 g 98 [degF] Suzanne Flanagan PA-C [address] [facility] [address], [place], [address] , [facility] 02/16/2024 08:04:53 Social History None recorded. Functional Status None recorded. Mental Status None recorded. Family History Nothing Reported. Medical History Condition Response Anxiety/Depression Y Acid Reflux (GERD) Y Gynecological HistoryNo gynecological history recorded. Obstetrics History GPAL:G 0 P 0 0 0 0 Past Encounters Encounter ID Performer Location Encounter Start Date Encounter Closed Date Diagnosis/Indication Diagnosis SNOMED-CT Code Diagnosis ICD10 Code Diagnosis IMO Codes Diagnosis Note [id number] MALENA [facility] [address] [place] [address] 01/12/2024 09:15:22 01/12/2024 12:44:13 Derangement of medial meniscus of right knee [id number] 67891 M23.435 [id number] MALENA Barton [address] [place] [address] 02/16/2024 07:49:15 03/01/2024 09:04:45 Derangement of medial meniscus of right knee [id number] M23.110 [id number] MD DORETHA Cortes [address] [place] [address] 08/15/2024 08:47:49 08/29/2024 08:04:44 Pain in right foot [id number] 05788 M79.671 145609 Talipes planus 43483390 Q66.6 83711 Acquired pes planus 2035 15842 M21.41 [id number] MD DORETHA Cortes [address] [place] [address] 11/14/2024 09:42:19 11/17/2024 11:50:13 Pain in left foot [id number] 95459 M79.672 661003 Pain 57252204 T84.84X A 62192419 Naviculocuneiform bar 20 6967955 Q66.89 76071094 Acute ankle pain 4051112 011 9105 M25.572 [id number] MD DORETHA Cortes [address] [place] [address] 11/30/2024 14:59:11 12/13/2024 08:33:34 Pain 52088859 T84.84XA 73995784 Naviculocuneiform bar 20 9410268 Q66.89 35936277 Arthritis of left foot [id number] 543752 M19.072 159511 Health Concerns Section Related Observation LastModified by Organization Detai ls LastModified Time None Recorded Concern Status LastModified by Organization Details LastModified Time None Recorded Advance Directives Directive None Recorded Payers Insurance Date Sequence Insurance Name Policy Number Policy Mcmanus Covered Member ID Mcmanus Member ID Guarantor Name 11/30/2024 1 MEDICARE B-[place]: [employer] Joie Cortes [id number] Joie Cortes 12/13/2024 2 MEDICAID-ID: [facility] Joie Cortes [id number] Joie Cortes Notes Date Note Type Note Provider Name and Address Organization Details Recorded Time 01/12/2024 text/html I am seeing the patient today under the supervision of Dr. Hennessy who was consulted to evaluate and see the patient today.Dx: Medial meniscus tear right knee with secondary large popliteal cyst.Interval History: Maria Luisa is a 53-year-old female not currently working who has a history of right knee pain and Pearl's cyst. At previous office visit she was treated for Pearl's cyst and possible meniscus tear. Conservative measures have been somewhat helpful but she has noted recurrence of pain and swelling. Concern whether she returns for follow-upPast Medical/Surgical History/Meds/Allergi es reviewed and charted.Physical Exam: The patient is well appearing and in no apparent distress. Alert and oriented x3. Gait is symmetric.afebrile, vital signs stable, in no apparent distress, oriented to person/place/time.Ga it normal.skin: intact, no erythema.Heart RRR.Lungs clearAbdomen soft, nontender.Right KNEE: no redness, warmth, deformity Effusion estimated 10 cc. There is a moderate sized Pearl cyst but mostly she has tenderness to palpation medially. Atrophy negative, Range of Motion 0-130 degrees. Strength 5/5 all muscle groups. Pato negative. Pivot Shift negative Varus/Valgus/Posteri or laxity testing: negative. Joint Line Tenderness: Positive severe medial side. Mi s : Painful. Patellofemoral crepitus mild.Contralateral knee: no deformity, no effusion, full motion, no laxity, no joint line tenderness.Periphera l, vascular, lymphatic examination, skin, neurological, coordination, reflexes, sensation are within normal limits.Patient has had radiographs at a previous visit which included standing views and do not show significant arthritis.Impression : Symptomatic medial meniscus tear with secondary popliteal cyst of the right kneePlan: Treatment options were discussed with this patient. Recommendation at this time is for surgical intervention with knee arthroscopy. She is tentatively scheduled with Dr. Hennessy for right knee arthroscopy with partial meniscectomy and fenestration of Pearl cyst. Rationale for this discussed as well as outcome expectations and patient wishes to move forward. She consents to surgery.Detailed discussion regarding the patient s pathoanatomy and treatment options conducted. The risks and benefits, potential complications including but not limited to failure to alleviate pain or improve function, need for further surgery, infection, stiffness, bleeding, neurovascular injury, deep venous thrombosis, pulmonary embolism, limp all discussed and understood. The patient understands that, to whatever degree knee arthritis/degenerati on is found at the time of surgery, arthroscopy may not fully relieve pain. I explained that arthroscopy has a diagnostic role, and may lead to recommendations for more extensive surgery such as partial or total knee replacement surgery as definitive management of their condition.[employer] speech recognition veneer production machine operator software was used to create portions of this document. An attempt at proofreading has been made to minimize errors. Please call for corrections. Gen Nuno PA-C [address], [place], [address], [facility] 01/12/2024 11:54:25 02/16/2024 text/html I am seeing the patient today under the supervision of Dr. Horner who was available but who did not see the patient. HISTORY OF PRESENT ILLNESS The patient returns for initial postop evaluation status post Right Knee Arthroscopy. Patient reports no initial adverse complications during the perioperative/postop erative course. They are pleased with their initial progress. Operative findings: Complex tear medial meniscus with Pearl's cyst for which was treated with fenestration, grade 2/3 changes patella, grade 2 changes medial compartment, focal grade 3 changes lateral compartment. PHYSICAL FINDINGS The patient ambulates with crutches, mild antalgic gait, 1+ effusion. Incision is healing well. Sutures Removed, steri's applied. No sign of infection or DVT. ASSESSMENT Status post right knee Arthroscopy PLAN Discussed plans for slow return to normal activities over 4-6 weeks. Continue modifications activities utilizing ice, oral NSAIDs as clinically indicated. Benefits of home physical therapy described and outlined in detail for the patient today. Recommendation is made for follow-up care in 6 weeks' time if patient remains symptomatic. Suzanne Flanagan PA-C [address], [place], [address], [facility] 02/16/2024 08:11:43 08/15/2024 text/html ROS as noted in the HPI Oracio Garvin MD [address], [place], [address], [facility] 08/15/2024 11:02:03 11/14/2024 text/html ROS as noted in the HPI Oracio Garvin MD [address], [place], [address], [facility] 11/14/2024 10:44:23 11/30/2024 text/html ROS as noted in the HPI Oracio Garvin MD [address], [place], [address], [facility] 11/30/2024 15:45:33 OBGyn Episode No OBEpisode recorded.
--- OUTSIDE RECORDS SUMMARY | 2025-04-27 09:50 | XMS_ITS | Encounter Summary ---
Author Organization [facility] Address [address] [place] [address] Care Team Providers Care Lamp Wirer Name Role Phone Emeterio House Primary Care Provider [phone] Reason for Visit * Reason Onset Date Comments Sleep Study 04/23/2025 Encounter Details Date Type Department Care Team ([facility] Contact Info) Description 04/23/2025 Telephone Pulmonology - [place] [address] [facility] [address] [place] [address] Nelida Harman MA Social History Tobacco Use Types Packs/Day Years [...] for your loved ones. For example, child and adolescent therapist or elderly care for an older adult? [...] on file documented as of this encounter Progress Notes * Nelida Harman MA - 04/23/2025 10:38 AM EST Sleep study referral faxed to [facility]. Fax confirmation was received. documented in this encounter Plan of Treatment Upcoming Encounters Date Type Department Care Team ([facility] st Contact Info) Description 05/15/2025 7:30 AM EST Appointment [facility] Scan [address] [place] [phone] 06/05/2025 8:30 AM EST Ancillary Procedure Pulmonology - [place] [address] [facility] [address] [place] [address] 06/05/2025 9:15 AM EST Office Visit Pulmonology - [place] [address] [facility] [address] [place] [phone] Arcelia Kirk MD [address] [place] [phone] 09/11/2025 8:00 AM EDT Office Visit Bariatric Surgery - [place] [address] [facility] [address] [place] [address] Rimma Kelly PA [address] [place] [address] documented as of this encounter Visit Diagnoses Not on filedocumented in this encounter Additional Health Concerns Assessment Noted Time PHQ-9 Depression Total Score: 0 07/23/19 25 10:02 AM EST documented as of this encounter Care Teams Lamp Wirer Relationship Specialty Start Date End Date Emeterio House PA [address] [place] [address] PCP - General Internal Medicine 08/14/20 documented as of this encounter
--- OUTSIDE RECORDS SUMMARY | 2025-04-27 09:50 | XMS_ITS | Patient Health Record ---
Author Organization [facility] Address [address] [facility] [address] [place] [address] Care Team Providers Care Metal Reed Tuner Name Role Phone Trino Anderson Primary Care Provider Unavailabl e Allergies Allergen (clinical drug ingredient) Drug/Non Drug Allergy documented on EMR Reaction Allergy Type Onset Date Status amoxicillin / clavulanate Augmentin Unknown Drug Allergy Active moxifloxacin Avelox Unknown Drug Allergy Acti ve Reason For Referral No Information Medications Medication SIG (Take, Route, Frequency, Duration) Notes Start Date End Date Status Acetaminophen 500 MG 1 tablet as needed Orally every 6 hrs; Duration: 30 days 08/23/2020 Active clonazePAM 0.5 MG 1 tablet at bedtime Orally bid prn Active ARIPiprazole 5 MG 1 tablet Orally plac e under tongue daily 1.5 Active OXcarbazepine 300 MG 1 tablet Orally Twi ce a day Active Trintellix 20 MG 1 tablet Orally Once a day Active Bisacodyl daily Active Diclofenac Sodium 1 % as directed Externally place 4 g onto the skin bid Active tiZANidine HCl 2 MG 1 tablet as needed Orally every 8 hr prn Active Problems Problem Type SNOMED Code ICD Code Onset Dates Problem Status W/U Status Risk Notes Problem Arthritis of left subtalar joint (93089484785190 109) 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) Pes planovalgus (Q66.6) Active confirmed Plan Of Treatment Pending Test Test Name Order Date Basic Metabolic Panel (8) 07/29/2020 CBC 07/29/2020 Ultrasound : Lower Extremity, left 11/08 MRI : Lower Ext Joint W/O Contrast 07/25 Ultrasound : Doppler : Veins Leg Left X ray : Foot, left 3v 07/25/2020 X ray : Foot, left 3v 09/06/2020 X ray : Foot, left 3v 09/23/2020 X ray : Foot, right 3v 11/22/2020 INJ TENDON SHEATH/LIGAMENT/FASCIA 2020 DRAIN/INJECT, INTERMEDIATE JOINT/BURSA 0 07/25/2020 DRAIN/INJECT, INTERMEDIATE JOINT/BURSA 0 01/07/2021 DRAIN/INJECT, INTERMEDIATE JOINT/BURSA 0 02/05/2021 Insurance Providers Payer Name Payer Address Payer Phone Subscriber Number Group Number Insured Name Patient Relationship to Insured Coverage Start Date Coverage End Date [employer] of [place] [address] [place] [id number] Joie Cortes Self - patient is the insured Medications Administered Medication Instructions Date of Administration Dosage Notes Dexamethasone 07/25/2020 0.5 mL Dexamethasone 11/22/2020 0.5 mL Dexamethasone 01/07/2021 0.5 mL Dexamethasone 02/05/2021 0.5 mL Kenalog 07/25/2020 0.5 mL Kenalog 11/22/2020 0.5 mL Kenalog 01/07/2021 0.5 mL Kenalog 02/05/2021 0.5 mL Medical (General) History Medical History History ICD Code Pain in left wrist M25.532 Radial styloid tenosynovitis [de Quervai n] M65.4 Gastric ulcer, unspecified a s acute or chronic, without hemorrhage or perforation K25.9 Diaphragmatic hernia without obstruction or gangrene K44.9 Major depressive disorder, single episod e, unspecified F32.9 Tobacco use disorder F17.200 Myalgia and myositis, inspecified Irritable bowel syndrome without diarrhe a K58.9 Spondylosis without myelopathy or radicu lopathy, lumbosacral region M47.817 Generalized anxiety disorder F41.1 Epigastric pain R10.13 Family history of malignant neoplasm of digestive organs Z80.0 Surgical History Surgery Date(Month/Year) left posterior tibial tendon repair
--- OUTSIDE RECORDS SUMMARY | 2025-04-27 09:50 | XMS_ITS | Encounter Summary ---
Author Organization [facility] Address [address] [place] [address] Care Team Providers Care Intranet Developer Name Role Phone Emeterio House Primary Care Provider [phone] Reason for Visit * Reason Onset Date Comments Advice Only 04/06/2025 Phentermine Encounter Details Date Type Department Care Team ([facility] Contact Info) Description 04/06/2025 Telephone Bariatric Surgery - [address] [place] [address] Macie Dos Santos PA [address] [place] [phone] Social History Tobacco Use Types Packs/Day Years [...] on file documented as of this encounter Ordered Prescriptions Prescription Sig Dispense Quantity Refills Last Filled Start Date End Date phentermine 30 mg capsule Take 1 capsule (30 mg total) by mouth 1 (one) time each day before breakfast. Max Daily Amount: 30 mg 30 each 04/25/2025 phentermine 15 mg capsule Take 1 capsule (15 mg total) by mouth 1 (one) time each day before breakfast. Max Daily Amount: 15 mg 30 each 04/09/2025 documented in this encounter Progress Notes * IBRAHIMA Zurita - 04/25/2025 1:34 PM ESTAddended by: MACIE DOS SANTOS on: 04/25/2025 01:34 PM Modules accepted: Orders * Shonda Chand - 04/25/2025 11:18 AM EST Patient is requesting a higher dose of Phentermine - she states it's not working and would like to go up if you see fit. * Shonda Chand - 04/06/2025 1:47 PM EDT Patient called requesting a prescription for Phentermine until she qualifies for GLP-1 therapy. She expressed frustration about waiting until her next scheduled visit in September and feels the delayis unnecessary. Please advise. documented in this encounter Plan of Treatment Upcoming Encounters Date Type Department Care Team (Late st Contact Info) Description 05/15/2025 7:30 AM EST Appointment [facility] CT Scan [address] [place] [phone] 06/05/2025 8:30 AM EST Ancillary Procedure Pulmonology - [place] [address] [facility] [address] [place] [address] 06/05/2025 9:15 AM EST Office Visit Pulmonology - [place] [address] [facility] [address] [place] [address] Arcelia Kirk MD [address] [place] [phone] 09/11/2025 8:00 AM EDT Office Visit Bariatric Surgery - [place] [address] [facility] [address] [place] [address] Macie Dos Santos PA [address] [place] [phone] documented as of this encounter Visit Diagnoses Not on filedocumented in this encounter Discontinued Medications Medication Sig Discontinue Reason Start Date End Da te phentermine 30 mg capsule Take 1 capsule (30 mg total) by mouth 1 (one) time each day before breakfast. Max Daily Amount: 30 mg 08/10/2024 04/09/2025 phentermine 15 mg capsule Take 1 capsule (15 mg total) by mouth 1 (one) time each day before breakfast. Max Daily Amount: 15 mg 04/09/2025 04/25/2025 documented as of this encounter Additional Health Concerns Assessment Noted Time PHQ-9 Depression Total Score: 0 07/23/19 25 10:02 AM EST documented as of this encounter Care Teams Intranet Developer Relationship Specialty Start Date End Date Emeterio House PA [address] [place] [address] PCP - General Internal Medicine 08/14/20 documented as of this encounter
== END 2025-04-27 08:56 | disposition home or self-care (01) ==
LOC: HO.HPHYSR 08:55
PROVIDERS: Visit Provider Physical Medicine & Rehabilitation
DX: M47.816 Spondylosis without myelopathy or radiculopathy, lumbar region (principal)
CPT/HCPCS: 64493; 64494; J2003; J3301; Q9967

== ENCOUNTER 2025-04-27 08:55 | Outpatient (AMB) | payer MEDICARE, MEDICAID, SELFPAY ==
--- NOTE | 2025-04-27 09:00 | A.PHYSOV_ITS ---
Vital Signs 04/27/25 09:02 Height 5 ft 2 in Weight 183 lb BMI 33.5 BP 145/85 H Temp 98.5 F Intake Visit Reasons: Right Lumbar Facet Injection L4-5 L5-S1 Intake Note: Patient is a 54 year old female in office today for Right L4-5 and L5-S1 Facet Injection Allergies amoxicillin (From Augmentin) Allergy (Unknown, Verified 04/27/25 09:00) Unknown clavulanic acid (From Augmentin) Allergy (Unknown, Verified 04/27/25 09:00) Unknown moxifloxacin (From Avelox) Allergy (Unknown, Verified 04/27/25 09:00) Unknown [facility] Medical History (Updated 04/27/25 @ 09:11 by Ollie Lofton DO) Spondylosis of lumbar region without myelopathy or radiculopathy Surgical History (Updated 04/27/25 @ 09:02 by Page Pimentel MA) H/O ankle fusion (Unknown) H/O: knee surgery (Unknown) History of hysterectomy (Unknown) Social History (Updated 04/23/25 @ 16:24 by Page Pimentel MA) Household Members: Spouse Alcohol intake: current Alcohol intake frequency: does not drink Patient Tobacco Use Status: Former Tobacco user Use of substances other than those prescribed or required for medical reasons: No Physical Exam Vital Signs: Last Vital Signs Temp 98.5 F 04/27/25 09:02 BP 145/85 H 04/27/25 09:02 BMI result Body Mass Index 33.5 Office Procedures Procedure Details: Right L4-L5, L5-S1 facet injections Preop diagnosis: Lumbar facet arthropathy Postop diagnosis: The same After informed consent was obtained, patient was brought into the procedure room and placed in the prone position on the procedure table. Skin over the lumbar sacral area was prepped and draped in the usual sterile manner. The facet joints indicated above were visualized utilizing fluoroscopy. For each joint 3.5 inch 22 gauge spinal needle was introduced percutaneously and advanced to enter the joint space. Needle placement was verified utilizing 0.2 cc of Omnipaque contrast solution. Each joint received total 1.5 cc of therapeutic solution containing 20 mg of of triamcinolone and 2% lidocaine. Radiation exposure was recorded and documented in chart. [id number] Lumbar Facet Inj SINGLE Level- use with FL Gd order: [id number] - One Side [id number] Lumbar Facet Inj SECOND Level- use with FL Gd order: [id number] - One Side Procedure code (CPT) selection complete Office Meds Kenalog 40 mg/mL suspension for injection Performing Provider: Ollie Lofton DO Performing Location: [facility] Administered by: Ollie Lofton DO on 04/27/25 09:11 Dose Route Admin Location Dispensed Lot Number Expiration Date [facility] [employer] 40 mg intra-articular 1 mL [id number] [employer] Total Dispensed Waste 1 mL 0 % lidocaine (PF) 20 mg/mL (2 %) injection solution Performing Provider: Ollie Lofton DO [facility] Administered by: Ollie Lofton DO on 04/27/25 09:11 Dose Route Admin Location Dispensed Lot Number Expiration Date [facility] [employer] 80 mg intra-articular 5 mL [id number] [facility] Total Dispensed Waste 5 mL 20 % Omnipaque 300 300 mg iodine/mL intravenous solution Performing Provider: Ollie Lofton DO Performing Location: [facility] Administered by: Ollie Lofton DO on 04/27/25 09:11 Dose Route Admin Location Dispensed Lot Number Expiration Date [facility] [employer] 3 mL intra-articular 10 mL [id number] [employer] Total Dispensed Waste 10 mL 70 % Assessment & Plan Assessment & Plan (1) Spondylosis of lumbar region without myelopathy or radiculopathy: Code(s): M47.816 - Spondylosis without myelopathy or radiculopathy, lumbar region Category: Medical Plan: Right L4-L5 and L5-S1 facet injections were performed Orders: Orders AMB Lumbar Facet Injection Today M47.816 - Spondylosis without myelopathy or radiculopathy, lumbar region FL Gd Lumbar Spine Facet Inj Today M47.816 - Spondylosis without myelopathy or radiculopathy, lumbar region Coding Level of Care Code Procedure Only Diagnoses Spondylosis of lumbar region without myelopathy or radiculopathy M47.816 CPT Codes Lumbar Facet Injection - 76969 Thoracic Facet Inj CPT: 54114 - One Side ([id number]) Lumbar Facet Injection - 92499 Thoracic Facet Inj CPT: 97218 - One Side ([id number])
[2025-04-27 09:02] VITALS: BP 145/85; TEMP 36.9; BMI 33.5
== END 2025-04-27 09:28 | disposition home or self-care (01) ==
LOC: HO.HPHYS 08:56
PROVIDERS: Visit Provider Physical Medicine & Rehabilitation
DX: M47.816 Spondylosis without myelopathy or radiculopathy, lumbar region (principal)
CPT/HCPCS: 64493; 64494

== ENCOUNTER 2025-05-22 09:30 | Outpatient (AMB) | payer MEDICARE, MEDICAID, SELFPAY ==
--- NOTE | 2025-05-22 09:37 | A.PHYSOV_ITS ---
Vital Signs 05/22/25 09:39 Height 5 ft 2 in Weight 185 lb BMI 33.8 Intake Visit Reasons: F/U after injection 04/27/2025 Intake Note: Patient is a 54 year old female in office for a follow up after Right Lumbar Facet Injection L4-5 L5-S1 04/27/25. Product Manager Medical Device Required: No Allergies amoxicillin (From Augmentin) Allergy (Unknown, Verified 05/22/25 09:38) Unknown clavulanic acid (From Augmentin) Allergy (Unknown, Verified 05/22/25 09:38) Unknown moxifloxacin (From Avelox) Allergy (Unknown, Verified 05/22/25 09:38) Unknown HPI Comments Details: History of Present Illness The patient is a 54 year old female presenting for a right lumbar facet injection. She previously underwent a right lumbar facet injection at L4-5 and L5-S1 on April 27, 2025, which resulted in a 50% reduction of her pain. An MRI of the lumbar spine from March 23, 2024, showed degenerative disc disease at L4-5 and L5-S1, moderate neuroforaminal stenosis, and moderate spinal canal stenosis at L4-5. Patient reports 7/10 left shoulder pain. Her symptoms are w orse with activity and improved with rest. She denies any specific trauma. She is requesting cortisone injection to the left shoulder today. Pain Description - A previous right lumbar facet injection provided a 50% reduction in pain. Procedure: L5-S1 [place] 05/05/2024 80% reduction of her pain L5-S1 [place] 03/02/2025 no relief Right L4-5, L5-S1 May 08, facet injection 50% reduction of her pain [facility] Medical History (Updated 05/22/25 @ 16:47 by IBRAHIMA Glass) Spondylosis of lumbar region without myelopathy or radiculopathy Surgical History H/O ankle fusion (Unknown) H/O: knee surgery (Unknown) History of hysterectomy (Unknown) Social History Household Members: Spouse Alcohol intake: current Alcohol intake frequency: does not drink Patient Tobacco Use Status: Former Tobacco user Review of Systems Narrative Review of Systems Physical Exam Exam Exam: Physical Exam Examination of her left shoulder: She is tender to the left AC joint to palpation. She has a positive horizontal adduction test. Full range of motion of the shoulder in all planes. She has a positive Neer test. Negative empty can test. Full range of motion of her elbow wrist and hand. Equal sales development specialist strength bilaterally. Lumbar Spine: Examination of the lumbar spine, there is no visible swelling or deformity. She is less tender to the right lower lumbar facets. She has full range of motion of her lumbar spine. Less pain with facet loading. Special Tests: Lhermittes sign was negative Heel Toe walk is normal Left straight leg raise: Negative Right straight leg raise: Negative Special tests Brennan test is negative Ganslen's test is negative SI Joint compression test negative Raine test negative Piriformis stretch is negative Lower Extremities: Full range of motion bilateral lower extremities. No calf pain or edema. Neuro: Sensation: Intact to lower extremities bilaterally Strength L2 (Psoas): 5/5 on the left and 5/5 on the right. L3 (Quads): 5/5 on the left and 5/5 on the right. L4 (Ant tibialis): 5/5 on the left and 5/5 on the right. L5 (EHL) 5/5 on the left and 5/5 on the right. S1 (Gastroc): 5/5 on the left and 5/5 on the right. DTR L4: (Patellar) Left 2 Right 2 S1: (Achilles) Left 2 Right 2 Babinski Downgoing No pathologic clonus. No involuntary movement. Vital Signs: BMI result Body Mass Index 33.8 Office Procedures AMB Shoulder Injection AMB Shoulder Injection Procedure Details: Left Acromioclavicular injection: The risks, benefits and complications were discussed with the patient, including but not limited to increase serum glucose, infection, nerve damage, bleeding, tendon/ligament damage and pain. We agree that an acromioclavicular injection is the next best step in the treatment plan. Verbal consent was obtained. Using aseptic technique, the skin was cleansed with Betadine over the AC joint. Ethyl chloride was used to desensitize the skin. I used 20 mg of Kenalog and 0.5 mL 2% lidocaine were injected using a 22- gauge inch and a half needle into the acromioclavicular joint. The patient tolerated the procedure well without immediate complication. Post injection instructions were give. Shoulder Injection - : Left All charges added?: Procedure code (CPT) selection complete Office Meds Kenalog 40 mg/mL suspension for injection Performing Provider: IBRAHIMA Glass Performing Location: [facility] Administered by: IBRAHIMA Glass on 05/22/25 16:36 Dose Route Admin Location Dispensed Lot Number Expiration Date [facility] Heel Stainer 20 mg intra-articular 1 mL [address]-5 [employer] Total Dispensed Waste 1 mL 50 % lidocaine (PF) 20 mg/mL (2 %) injection solution Performing Provider: IBRAHIMA Glass Performing Location: [facility] Administered by: IBRAHIMA Glass on 05/22/25 16:36 Dose Route Admin Location Dispensed Lot Number Expiration Date [facility] Heel Stainer 10 mg intra-articular 50 mL [id number] Total Dispensed Waste 50 mL 0 % Assessment & Plan Assessment & Plan (1) Osteoarthritis of left acromioclavicular joint: Code(s): M19.012 - Primary osteoarthritis, left shoulder Category: Medical (2) Vertebrogenic low back pain: Code(s): M54.51 - Vertebrogenic low back pain Category: Medical Plan Pain Management - Analgesia: The patient received a 40% reduction in pain from a prior right lumbar facet injection. Plan Patient was informed and verbally consented to the use of an ambient scribe for clinic note documentation during this visit. 1. Lumbar Spondylosis With Stenosis The patient will undergo a right lumbar facet injection at L4-5 and L5-S1 for her chronic low back pain. The injection consists of lidocaine for immediate anesthetic effect and a steroid for anti-inflammatory benefit. The patient has been counseled that she should have immediate relief from the lidocaine, but the pain may return for a few days until the steroid takes effect. Discussion Notes I discussed the right lumbar facet injection procedure with the patient. I explained that the injection contains two medications, lidocaine for immediate numbing and a steroid for a longer-term effect. I informed the patient that she should feel comfortable immediately after the procedure, but that the pain may return for a couple of days before the steroid begins to work. I confirmed that the area was cleaned with iodine to prevent infection. Patient Instructions - The injection you received today contains a numbing medicine (lidocaine) and a steroid. - The numbing medicine provides immediate relief, so you should feel comfortable when you leave. - Your pain may return for a couple of days, which is normal. - After a few days, the steroid medication will begin to work and provide longer-lasting pain relief. Orders: Orders AMB Shoulder Injection Today M19.012 - Primary osteoarthritis, left shoulder Coding Level of Care Code Tele Est Pt Level 3 (84099) Diagnoses Osteoarthritis of left acromioclavicular joint M19.012 Vertebrogenic low back pain M54.51 CPT Codes AMB Shoulder Injection - Hip/Bursa Injection - : Left ([id number])
[2025-05-22 09:39] VITALS: BMI 33.8
== END 2025-05-22 10:16 | disposition home or self-care (01) ==
LOC: HO.HPHYS 09:30
PROVIDERS: PCP Physician Assistant Medical; Visit Provider Physician Assistant
DX: M19.012 Primary osteoarthritis, left shoulder (principal); M54.51 Vertebrogenic low back pain
CPT/HCPCS: 20610; 99213

== ENCOUNTER → 2025-05-22 09:30 | Outpatient (BNVA) | payer MEDICARE, MEDICAID, SELFPAY | PROVIDERS: PCP Physician Assistant Medical; Visit Provider Physician Assistant | DX: M19.012 Primary osteoarthritis, left shoulder (principal); M54.51 Vertebrogenic low back pain | CPT/HCPCS: 20610; 99212; J2003; J3301 ==